=== PATIENT | male | born 1950 | race Caucasian/White ===

== ENCOUNTER 2018-08-08 14:26 | Day surgery (SDC) | payer MEDICARE, OTHER ==
[~2018-08-08] VITALS: Ht 180.3 cm; Wt 100.0 kg
[~2018-08-08 14:26] MED LIST: DIL50T PO; LEVO25TA2 PO; NAPR220C15 PO; PHEN50TA2 PO
[2018-08-08] MEDS ORDERED: LIDOcaine Viscous 15ml cup ONE (14:45)
[2018-08-08] MEDS ORDERED: MIDAZolam 5mg/5ml vial ONE (14:45)
[2018-08-08] MEDS ORDERED: fentaNYL/PF 50MCG/1 ML 2ML syringe ONE (14:45)
[2018-08-08 14:50] VITALS: BP 158/75
[2018-08-08 15:32] VITALS: BP 146/104
[2018-08-08 15:42] VITALS: BP 157/91
[2018-08-08 15:52] VITALS: BP 137/94
[2018-08-08 16:02] VITALS: BP 140/96
== END 2018-08-08 16:30 | disposition home or self-care (01) ==
LOC: GI LAB 14:26
PROVIDERS: ATTEND Internal Medicine Gastroenterology
DX: K25.4 Chronic or unspecified gastric ulcer with hemorrhage (principal); K20.9 Esophagitis, unspecified; K29.50 Unspecified chronic gastritis without bleeding; K22.8 Other specified diseases of esophagus; G47.33 Obstructive sleep apnea (adult) (pediatric); Z87.891 Personal history of nicotine dependence; Z86.69 Personal history of other diseases of the nervous system and sense organs; Z85.828 Personal history of other malignant neoplasm of skin; Z79.899 Other long term (current) drug therapy; Z98.890 Other specified postprocedural states
CPT/HCPCS: 43239; G0500; J2250; J3010; J7030; 88305; 88342; 99152; 99153; A4620

== ENCOUNTER 2021-10-17 12:38 | Outpatient (CLI) | payer MEDICARE, OTHER, MEDICAID ==
[2021-10-16 16:35] LABS: ALANINE AMINOTRANSFERASE 31 U/L (12-78); ALBUMIN/GLOBULIN RATIO 1.4 (1.1-1.5); ALKALINE PHOSPHATASE 105 IU/L (46-116); ANION GAP 10 (8-16); ASPARTATE AMINO TRANSFERASE 19 U/L (10-37); BILIRUBIN,TOTAL 0.2 MG/DL (0.1-1.0); BLOOD UREA NITROGEN 18 MG/DL (7-18); BUN/CREATININE RATIO 21.2 (5.4-32.0); CALCIUM 8.7 MG/DL (8.5-10.1); CHLORIDE 108 MMOL/L (99-107); CREATININE 0.85 MG/DL (0.60-1.10); GLUCOSE 91 MG/DL (70-104); POTASSIUM 4.1 MMOL/L (3.5-5.1); SODIUM 145 MMOL/L (135-145); TOTAL CARBON DIOXIDE 26.6 MMOL/L (24-32); TOTAL PROTEIN 6.9 G/DL (6.4-8.2); eGFR 89 ML/MIN
[~2021-10-17 12:38] MED LIST changes: +iohexol 300mg/ml 100ml inj. ONE
== END 2021-10-17 23:59 | disposition home or self-care (01) ==
LOC: 64 CT 12:38
PROVIDERS: ATTEND Family Medicine
DX: G93.89 Other specified disorders of brain (principal); I10 Essential (primary) hypertension; G31.89 Other specified degenerative diseases of nervous system; Z98.2 Presence of cerebrospinal fluid drainage device
CPT/HCPCS: 36415; 70450; 80053; Q9967

== ENCOUNTER 2022-07-22 13:56 | Outpatient (CLI) | payer MEDICARE, OTHER, MEDICAID ==
[~2022-07-22 13:56] MED LIST changes: -PHEN50TA2 PO; +PHEN50TA4 PO; -iohexol 300mg/ml 100ml inj. ONE
== END 2022-07-22 23:59 | disposition home or self-care (01) ==
LOC: RAD 13:56
PROVIDERS: ATTEND Otolaryngology
DX: R13.12 Dysphagia, oropharyngeal phase (principal); R47.1 Dysarthria and anarthria; R49.0 Dysphonia
CPT/HCPCS: 74230